=== PATIENT | male | born 1940 | race Caucasian/White ===

== ENCOUNTER 2016-11-18 09:38 | Outpatient (CLI) | payer MEDICARE, OTHER ==
[2016-11-18] MEDS ORDERED: IOPAMIDOL-300 100 ML VIAL ONE (09:45)
[2016-11-18] MEDS ORDERED: IOPAMIDOL-300 50 ML VIAL ONE (09:45)
--- NOTE | 2016-11-18 12:42 | CT Report ---
CT ABDOMEN AND PELVIS WITH AND WITHOUT CONTRAST: 11/18/2016 CLINICAL INDICATION: Change in bowel habits, bloating, nausea. TECHNIQUE: Axial CT images of the abdomen and pelvis were obtained prior to and following 100 mL Iso debora-300 intravenously. Oral contrast was administered. No previous CT is available for comparison. In accordance with CT protocol optimization, one or more of the following dose reduction techniques w ere utilized for this exam: automated exposure control, adjustment of mA and/or KV based on patient size, or use of iterative reconstructive technique. FINDINGS: Limited evaluation of the lung bases is unremarkable. Abdomen: On the unenhanced images, there is a 5-mm calculus in the lower pole of the left kidney, wi thout evidence of hydronephrosis. A small left extrarenal pelvis is present. The liver, spleen, ervin creas, and adrenal glands are unremarkable. The right kidney demonstrates an extrarenal pelvis, and a small cortical cyst. A splenule is noted in the splenic hilum. The gallbladder is not dilated. N o bowel dilatation, free gas, or free fluid is present. No abdominal adenopathy is seen. Pelvis: A small amount of stool is present in the sigmoid colon. A few scattered diverticula are se en, without CT evidence of diverticulitis. No pelvic adenopathy or free fluid is present. Osseous structures demonstrate degenerative changes. IMPRESSION: 1. NO DEFINITE COLONIC MASS. SMALL AMOUNT OF STOOL IN THE SIGMOID COLON. 2. LEFT NEPHROLITHIASIS, WITHOUT HYDRONEPHROSIS. JOB #: [id number] EXT JOB #:[id number]
== END 2016-11-18 09:39 | disposition home or self-care (01) ==
LOC: DI 09:38
PROVIDERS: ATTEND Nurse Practitioner Family
DX: N20.0 Calculus of kidney (principal)
CPT/HCPCS: 74178; Q9967

== ENCOUNTER 2017-11-14 22:10 | Emergency (ER) | payer MEDICARE, OTHER ==
[2017-11-14 22:23] VITALS: BP 158/67
[2017-11-14] MEDS ORDERED: MUPIROCIN 2% OINT 1 GM TOP STA (23:29)
[2017-11-14] MEDS ORDERED: DOXYCYCLINE 100 MG TABLET PO STA (23:29)
--- NOTE | 2017-11-14 23:45 | ED Physician Documentation ---
PD HPI LOWER EXT INJURY - Stated complaint Stated Complaint: LEG PX - Chief complaint Chief Complaint: Ext Problem - History obtained from History obtained from: Patient - History of Present Illness PD HPI LOW EXT INJURY LOCATION: Left, Lower leg Type of injury: Blunt / blow (struck lim on tow hitch of car in parking lot couple weeks ago, and had slowly healing scabbed wound. It has swelling and some redness now the past couple of days.) Where injury occurred: Other (parking lot) Timing - onset: How many weeks ago (2) Timing - details: Gradual onset (of the redness and swelling just past couple days) Worsened by: Palpating Associated symptoms: Swelling, Discolored (red). No: Weakness, Numbness Contributing factors: No: Anticoagulated Similar symptoms before: Has not had sx before Recently seen: Not recently seen Review of Systems Constitutional: denies: Fever, Chills Neurologic: denies: Focal weakness, Numbness PD PAST MEDICAL HISTORY - Past Medical History Past Medical History: No Cardiovascular: Hypertension Respiratory: None Neuro: None Endocrine/Autoimmune: Type 2 diabetes GI: None : Benign prostate hypertrophy HEENT: None Psych: Depression, Anxiety Musculoskeletal: None Derm: None - Past Surgical History Past Surgical History: Yes Ortho: Arthroscopic surgery - Present Medications Home Medications: Ambulatory Orders Medication Instructions Recorded Confirmed Doxycycline Monohydrate 100 mg PO BID #14 tablet 11/14/17 Mupirocin 1 applic TP TID #15 oint...g. 11/14/17 - Allergies Allergies/Adverse Reactions: Allergies Allergy/AdvReac Type Severity Reaction Status Date / Time No Known Drug Allergies Allergy Verified 11/14/17 22:23 - Social History Does the pt smoke?: No Smoking Status: Never smoker Does the pt drink ETOH?: Yes ETOH Use: Wine Does the pt have substance abuse?: No - Immunizations Immunizations are current?: Yes - POLST Patient has POLST: Yes PD ED PE NORMAL - Vitals Vital signs reviewed: Yes - General General: Alert and oriented X 3, No acute distress, Well developed/nourished - Derm Derm: Normal color, Warm and dry - Extremities Extremities: No calf tenderness / cord, Other (anterior lower leg with abrasion type injury with scab present. There is some surrounding mild redness and swelling. Tender locally. No calf tenderness. ) - Neuro Neuro: Alert and oriented X 3, No motor deficit, No sensory deficit, Normal speech Results - Vitals Vitals: Vital Signs - 24 hr 11/14/17 22:19 Temperature 36.9 C Heart Rate 70 Respiratory 17 Rate Blood Pressure 158/67 H O2 Saturation 98 Oxygen O2 Source Room air PD MEDICAL DECISION MAKING - ED course Complexity details: considered differential (abrasion slow healing with scab and now couple days of swelling and redness without drainage. ), d/w patient - Sepsis Event Vital Signs: Vital Signs - 24 hr 11/14/17 22:19 Temperature 36.9 C Heart Rate 70 Respiratory 17 Rate Blood Pressure 158/67 H O2 Saturation 98 Oxygen O2 Source Room air Departure - Departure Disposition: 01 Home, Self Care Clinical Impression: Traumatic open wound of lower leg with infection Qualifiers: Encounter type: initial encounter Laterality: left Qualified Code(s): S81.802A - Unspecified open wound, left lower leg, initial encounter; L08.9 - Local infection of the skin and subcutaneous tissue, unspecified Condition: Stable Record reviewed to determine appropriate education?: Yes Instructions: ED Infec Skin Cellulitis Follow-Up: DICK GEE MD [Primary Care Provider] - Prescriptions: Doxycycline Monohydrate 100 mg PO BID #14 tablet Mupirocin 1 applic TP TID #15 oint...g. Comments: Cleanse the wound area with soap and water 2-3 times a day and apply mupirocin topical antibiotic. Cover the wound with a dressing and apply Mj wrap to help reduce some of the swelling. Take doxycycline oral antibiotic twice daily for the next week. Recheck if the redness and swelling is not improved over the next several days. The scabbed wound itself will still likely take a couple weeks to fully heal up. Discharge Date/Time: 11/15/17 00:16
[2017-11-14] MEDS ORDERED: TETANUS/DIPHTHERIA/PERTUSSIS 0.5 ML SYRINGE IM ONE (23:48)
== END 2017-11-15 00:16 | disposition home or self-care (01) ==
LOC: ED 22:10
DX: S81.802A Unspecified open wound, left lower leg, initial encounter (principal); L08.9 Local infection of the skin and subcutaneous tissue, unspecified; W22.09XA Striking against other stationary object, initial encounter; Y92.481 Parking lot as the place of occurrence of the external cause; Z23 Encounter for immunization; I10 Essential (primary) hypertension; E11.9 Type 2 diabetes mellitus without complications
CPT/HCPCS: 90471; 90715; 99282; 99283; A9270

== ENCOUNTER 2017-11-21 10:39 | Emergency (ER) | payer MEDICARE, OTHER ==
[2017-11-21] MEDS ORDERED: cephALEXin 250 MG CAPSULE PO STA (12:21)
--- NOTE | 2017-11-21 12:23 | ED Physician Documentation ---
History of Present Illness - Stated complaint Stated Complaint: LEFT LEG PX - Chief complaint Chief Complaint: Ext Problem - Additonal information Additional information: hx from pt L lim vs trailer hithc open wound seen in ed - tdap and doxy and bactroban started to heal, then worse no fever Review of Systems Skin: reports: Other (ext wound) PD PAST MEDICAL HISTORY - Past Medical History Past Medical History: Yes Cardiovascular: Hypertension Respiratory: None Neuro: None Endocrine/Autoimmune: Type 2 diabetes GI: None : Benign prostate hypertrophy HEENT: None Psych: Depression, Anxiety Musculoskeletal: None Derm: None - Past Surgical History Past Surgical History: Yes Ortho: Arthroscopic surgery - Present Medications Home Medications: Ambulatory Orders Medication Instructions Recorded Confirmed Mupirocin 1 applic TP TID #15 oint...g. 11/14/17 Aspirin [Adult Low Dose Aspirin EC] 1 tab PO DAILY 11/21/17 11/21/17 Atorvastatin [Lipitor] 1 tab PO DAILY 11/21/17 11/21/17 Cephalexin [Keflex] 500 mg PO Q6H #28 capsule 11/21/17 Finasteride 1 tab PO DAILY 11/21/17 11/21/17 Gabapentin 1 tab PO TID 11/21/17 11/21/17 Lamotrigine [Lamotrigine ER] 1.5 tab PO DAILY 11/21/17 11/21/17 Lansoprazole 1 cap PO DAILY 11/21/17 11/21/17 Propranolol [Inderal] 2 tab PO DAILY 11/21/17 11/21/17 QUEtiapine [SEROquel] 2 tab PO DAILY 11/21/17 11/21/17 Spironolactone 0.5 tab PO DAILY 11/21/17 11/21/17 Zolpidem [Ambien] 1 tab PO DAILY 11/21/17 11/21/17 amLODIPine [Norvasc] 2 tab PO DAILY 11/21/17 11/21/17 clonazePAM [Clonazepam] 2 tab PO BID 11/21/17 11/21/17 - Allergies Allergies/Adverse Reactions: Allergies Allergy/AdvReac Type Severity Reaction Status Date / Time No Known Drug Allergies Allergy Verified 11/21/17 10:50 - Social History Does the pt smoke?: No Smoking Status: Never smoker Does the pt drink ETOH?: Yes Does the pt have substance abuse?: No - Immunizations Immunizations are current?: Yes - POLST Patient has POLST: Yes PD ED PE NORMAL - Vitals Vital signs reviewed: Yes - Cardiac Cardiac: RRR - Respiratory Respiratory: Clear bilaterally - Extremities Extremities: Other (L lim healing open wound but with small surrounding eyrthema, no abscess no streaking MSV intact) Results - Vitals Vitals: Vital Signs - 24 hr 11/21/17 10:47 Temperature 36.4 C L Heart Rate 70 Respiratory 16 Rate Blood Pressure 124/65 O2 Saturation 99 Oxygen O2 Source Room air PD MEDICAL DECISION MAKING - Sepsis Event Vital Signs: Vital Signs - 24 hr 11/21/17 10:47 Temperature 36.4 C L Heart Rate 70 Respiratory 16 Rate Blood Pressure 124/65 O2 Saturation 99 Oxygen O2 Source Room air Departure - Departure Disposition: 01 Home, Self Care Clinical Impression: Traumatic open wound of lower leg with infection Qualifiers: Encounter type: initial encounter Laterality: left Qualified Code(s): S81.802A - Unspecified open wound, left lower leg, initial encounter; L08.9 - Local infection of the skin and subcutaneous tissue, unspecified Condition: Good Instructions: ED Infec Skin Cellulitis Follow-Up: DICK GEE MD [Primary Care Provider] - Jovany Bowers MD [Provider Admit Priv/Credential] - Prescriptions: Cephalexin [Keflex] 500 mg PO Q6H #28 capsule Comments: Stop the doxycycline and try the keflex instead Continue the antibiotic ointment If not improving come back and see me tomorrow morning
[2017-11-21 12:32] VITALS: BP 116/68
== END 2017-11-21 12:40 | disposition home or self-care (01) ==
LOC: ED 10:39
DX: S81.802A Unspecified open wound, left lower leg, initial encounter (principal); L08.9 Local infection of the skin and subcutaneous tissue, unspecified; W22.09XA Striking against other stationary object, initial encounter; I10 Essential (primary) hypertension; E11.9 Type 2 diabetes mellitus without complications; Z79.82 Long term (current) use of aspirin
CPT/HCPCS: 99281; 99283; A9270

== ENCOUNTER 2017-11-22 10:54 | Emergency (ER) | payer MEDICARE, OTHER ==
[2017-11-22 11:16] VITALS: BP 128/65
--- NOTE | 2017-11-22 12:21 | ED Physician Documentation ---
History of Present Illness - Stated complaint Stated Complaint: LEG INFECTION/RECHECK - Chief complaint Chief Complaint: Wound - Additonal information Additional information: hx from pt L leg vs trailer hitch infected seen by me yesterday rx keflex back for wound check about the same Review of Systems Musculoskeletal: reports: Other (leg wound) PD PAST MEDICAL HISTORY - Past Medical History Cardiovascular: Hypertension Respiratory: None Neuro: None Endocrine/Autoimmune: Type 2 diabetes GI: None : Benign prostate hypertrophy, Kidney stones HEENT: None Psych: Depression, Anxiety Musculoskeletal: None Derm: None - Past Surgical History Past Surgical History: Yes Ortho: Arthroscopic surgery - Present Medications Home Medications: Ambulatory Orders Medication Instructions Recorded Confirmed Mupirocin 1 applic TP TID #15 oint...g. 11/14/17 Aspirin [Adult Low Dose Aspirin EC] 1 tab PO DAILY 11/21/17 11/21/17 Atorvastatin [Lipitor] 1 tab PO DAILY 11/21/17 11/21/17 Cephalexin [Keflex] 500 mg PO Q6H #28 capsule 11/21/17 Finasteride 1 tab PO DAILY 11/21/17 11/21/17 Gabapentin 1 tab PO TID 11/21/17 11/21/17 Lamotrigine [Lamotrigine ER] 1.5 tab PO DAILY 11/21/17 11/21/17 Lansoprazole 1 cap PO DAILY 11/21/17 11/21/17 Mupirocin Calcium [Bactroban] 1 applic TP BID #30 cream..g. 11/21/17 Propranolol [Inderal] 2 tab PO DAILY 11/21/17 11/21/17 QUEtiapine [SEROquel] 2 tab PO DAILY 11/21/17 11/21/17 Spironolactone 0.5 tab PO DAILY 11/21/17 11/21/17 Zolpidem [Ambien] 1 tab PO DAILY 11/21/17 11/21/17 amLODIPine [Norvasc] 2 tab PO DAILY 11/21/17 11/21/17 clonazePAM [Clonazepam] 2 tab PO BID 11/21/17 11/21/17 - Allergies Allergies/Adverse Reactions: Allergies Allergy/AdvReac Type Severity Reaction Status Date / Time No Known Drug Allergies Allergy Verified 11/22/17 11:04 - Social History Does the pt smoke?: No Smoking Status: Never smoker Does the pt drink ETOH?: Yes Does the pt have substance abuse?: No - Immunizations Immunizations are current?: Yes - POLST Patient has POLST: Yes PD ED PE NORMAL - Vitals Vital signs reviewed: Yes - Extremities Extremities: Other (open wound approx 1 X 1 cm and mall surrounding erythema no streaking or absces better than yesterday) Results - Vitals Vitals: Vital Signs - 24 hr 11/22/17 11:01 Temperature 35.6 C L Heart Rate 66 Respiratory 16 Rate Blood Pressure 128/65 O2 Saturation 97 Oxygen O2 Source Room air PD MEDICAL DECISION MAKING - Sepsis Event Vital Signs: Vital Signs - 24 hr 11/22/17 11:01 Temperature 35.6 C L Heart Rate 66 Respiratory 16 Rate Blood Pressure 128/65 O2 Saturation 97 Oxygen O2 Source Room air Departure - Departure Disposition: 01 Home, Self Care Clinical Impression: Traumatic open wound of lower leg with infection Qualifiers: Encounter type: subsequent encounter Laterality: left Qualified Code(s): S81.802D - Unspecified open wound, left lower leg, subsequent encounter; L08.9 - Local infection of the skin and subcutaneous tissue, unspecified Condition: Good Comments: Continue the keflex I will call Dr Bowers and ask he refer you to the wound clinic to aid healing
== END 2017-11-22 12:40 | disposition home or self-care (01) ==
LOC: ED 10:54
DX: S81.802D Unspecified open wound, left lower leg, subsequent encounter (principal); L08.9 Local infection of the skin and subcutaneous tissue, unspecified; W22.09XD Striking against other stationary object, subsequent encounter; I10 Essential (primary) hypertension; E11.9 Type 2 diabetes mellitus without complications; Z79.82 Long term (current) use of aspirin
CPT/HCPCS: 99282; 99283

== ENCOUNTER 2020-04-21 09:42 | Emergency (ER) | payer MEDICARE, OTHER ==
[2020-04-21] MEDS ORDERED: BUFFERED LIDOCAINE 10 ML SYRINGE IU ONE (10:11)
--- NOTE | 2020-04-21 10:17 | ED Physician Documentation ---
History of Present Illness - Stated complaint Stated Complaint: HEAD INJURY - Chief complaint Chief Complaint: Neuro - History obtained from History obtained from: Patient - Additonal information Additional information: Patient comes emergency department chief complaint of head injury after ground- level fall. He states he was in his garage and tripped over some lumbar that was laying on the floor. He fell forward and caught himself with his hands, but thinks that his head jerked toward the ground and he struck his forehead on the concrete floor of the garage. Patient denies loss of consciousness. He sustained a laceration to his central forehead. He denies any wrist pain. He has a couple of small abrasions on his hands but otherwise no other symptoms of injury. Patient states he has a little nausea and a little dizziness. No vomiting. No visual changes or other focal neurologic deficits. He takes 81 mg of aspirin daily, but no other anticoagulants. The injury happened an hour and a half ago. No other complaints at this time. Tetanus is up-to-date. Review of Systems Ten Systems: 10 systems reviewed and negative Constitutional: reports: Reviewed and negative Eyes: reports: Reviewed and negative Ears: reports: Reviewed and negative Nose: reports: Reviewed and negative Throat: reports: Reviewed and negative Cardiac: reports: Reviewed and negative Respiratory: reports: Reviewed and negative GI: reports: Nausea. denies: Abdominal Pain, Vomiting : reports: Reviewed and negative Skin: reports: Laceration (s) Musculoskeletal: reports: Reviewed and negative. denies: Neck pain, Extremity pain, Joint pain Neurologic: reports: Head injury. denies: Headache, LOC Psychiatric: reports: Reviewed and negative Endocrine: reports: Reviewed and negative Immunocompromised: reports: Reviewed and negative PD PAST MEDICAL HISTORY - Past Medical History Cardiovascular: Hypertension Respiratory: None Neuro: None Endocrine/Autoimmune: Type 2 diabetes GI: None : Benign prostate hypertrophy, Kidney stones HEENT: None Psych: Depression, Anxiety Musculoskeletal: None Derm: None - Past Surgical History Past Surgical History: Yes Ortho: Arthroscopic surgery - Present Medications Home Medications: Ambulatory Orders Medication Instructions Recorded Confirmed Aspirin [Adult Low Dose Aspirin EC] 1 tab PO DAILY 11/21/17 04/21/20 Atorvastatin [Lipitor] 1 tab PO DAILY 11/21/17 04/21/20 Finasteride 1 tab PO DAILY 11/21/17 04/21/20 Gabapentin 1 tab PO TID 11/21/17 04/21/20 Lamotrigine [Lamotrigine ER] 1 tab PO DAILY 11/21/17 04/21/20 Lansoprazole 1 cap PO DAILY 11/21/17 04/21/20 Propranolol [Inderal] 2 tab PO DAILY 11/21/17 04/21/20 QUEtiapine [SEROquel] 2 tab PO DAILY 11/21/17 04/21/20 Spironolactone 0.5 tab PO DAILY 11/21/17 04/21/20 Zolpidem [Ambien] 1 tab PO DAILY 11/21/17 04/21/20 amLODIPine [Norvasc] 2 tab PO DAILY 11/21/17 04/21/20 clonazePAM [Clonazepam] 2 tab PO BID 11/21/17 04/21/20 - Allergies Allergies/Adverse Reactions: Allergies Allergy/AdvReac Type Severity Reaction Status Date / Time No Known Drug Allergies Allergy Verified 04/21/20 09:48 - Social History Does the pt smoke?: No Smoking Status: Never smoker Does the pt drink ETOH?: Yes Does the pt have substance abuse?: No - Immunizations Immunizations are current?: Yes - POLST Patient has POLST: Yes PD ED PE NORMAL - Vitals Vital signs reviewed: Yes - General General: Alert and oriented X 3, No acute distress, Well developed/nourished - HEENT HEENT: PERRL, EOMI, Moist mucous membranes, Other (2.5 cm vertical midline laceration with slight irregularity of the patient's inferior forehead. No bony deformity underlying. Bleeding well controlled. No other facial trauma noted.No bony deformity or tenderness anywhere else on the face.) - Neck Neck: Supple, no meningeal sign, No bony TTP - Cardiac Cardiac: RRR, No murmur, Strong equal pulses - Respiratory Respiratory: No respiratory distress, Clear bilaterally - Abdomen Abdomen: Soft, Non tender, Non distended - Back Back: No spinal TTP - Derm Derm: Normal color, Warm and dry, No rash, Other (ByForehead laceration as noted above. 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, No motor deficit, No sensory deficit, Normal speech - Psych Psych: Normal mood, Normal affect Results - Vitals Vitals: Vital Signs - 24 hr 04/21/20 04/21/20 09:46 11:09 Temperature 36.5 C Heart Rate 70 67 Respiratory 18 19 Rate Blood Pressure 138/74 H 148/62 H O2 Saturation 100 98 Oxygen O2 Source Room air - Labs Labs: Laboratory Tests 04/21/20 10:32 POC Whole Bld Glucose 214 H - Rads (name of study) CT head Radiology: Final report received, EMP read indepedently, See rad report (neg) Procedures - Laceration (location) forehead Length in cm: 2.5 Wound type: Linear Neurovascular status: Sensory intact, Motor intact, Vascular intact Tendon involvement: No: Tendon Injury Anesthesia: Lidocaine 1% Wound preparation: Hibiclens, Irrigated copiously NS, Wound explored, To the base. No: FB identified Skin layer closure: Nylon, Size #-0 - enter number (5.0), Sutures - enter # (5) Other: Patient tolerated well, No complications, Dressing applied, Tetanus UTD PD MEDICAL DECISION MAKING - ED course Complexity details: reviewed old records, reviewed results, re-evaluated patient, considered differential, d/w patient ED course: The patient was very well-appearing, but I felt that he should have a head CT, given his use of aspirin, presence of some symptoms after head injury, and also, his age. Patient was agreeable to this. I also felt his wound should be sutured. CT scan was negative. Wound was repaired as above with sutures. We have discussed wound care at home, as well as the timeline for suture removal. We have discussed the usual indications for return. Departure - Departure Disposition: 01 Home, Self Care Clinical Impression: Fall from ground level Closed head injury Qualifiers: Encounter type: initial encounter Qualified Code(s): S09.90XA - Unspecified injury of head, initial encounter Forehead laceration Qualifiers: Encounter type: initial encounter Qualified Code(s): S01.81XA - Laceration without foreign body of other part of head, initial encounter Condition: Stable Instructions: ED Head Injury Closed, ED Laceration Facial Sutr Tape Comments: The CT scan of your head shows no bleeding in the brain or other evidence of injury. Your laceration has been cleaned and repaired with 5 synthetic sutures. You will need to have these removed by medical professional in 5 to 7 days. You may let water and soap run over the wound, but should avoid rubbing, scrubbing, or immersing the wound until sutures are removed. This is to prevent infection. If you begin to notice redness or swelling spreading progressively away from the wound, please have the wound rechecked immediately. You may use Tylenol as needed for any headache that may develop. Discharge Date/Time: 04/21/20 11:14
--- NOTE | 2020-04-21 10:47 | CT Report ---
PROCEDURE: HEAD WO INDICATIONS: head injury TECHNIQUE: Noncontrast 4.5 mm thick angled axial sections acquired from the foramen magnum to the vertex. For r adiation dose reduction, the following was used: automated exposure control, adjustment of mA and/or kV according to patient size. COMPARISON: None. FINDINGS: Image quality: Excellent. CSF spaces: Basal cisterns are patent. No extra-axial fluid collections. Ventricles are normal in size and shape. Brain: No midline shift. No intracranial masses or hemorrhage. Moon-white matter interface is norm al. Skull and face: Calvarium and visualized facial bones are intact, without suspicious lesions. Front al scalp laceration. Sinuses: Visualized sinuses and mastoids are clear. IMPRESSION: Frontal scalp laceration. No acute intracranial process. Reviewed by: Burton Lin MD on 04/21/2020 10:46 AM [facility] Approved by: Burton Lin MD on 04/21/2020 10:46 AM [facility] Station ID: [id number]
[2020-04-21 11:09] VITALS: BP 148/62
== END 2020-04-21 11:14 | disposition home or self-care (01) ==
LOC: ED 09:42
DX: S01.81XA Laceration without foreign body of other part of head, initial encounter (principal); S09.90XA Unspecified injury of head, initial encounter; S60.519A Abrasion of unspecified hand, initial encounter; W01.0XXA Fall on same level from slipping, tripping and stumbling without subsequent striking against object, initial encounter; Y92.008 Other place in unspecified non-institutional (private) residence as the place of occurrence of the external cause; Z79.82 Long term (current) use of aspirin; I10 Essential (primary) hypertension; E11.9 Type 2 diabetes mellitus without complications
CPT/HCPCS: 12011; 99282; 99284

== ENCOUNTER 2020-04-26 09:01 | Emergency (ER) | payer MEDICARE, OTHER ==
--- NOTE | 2020-04-26 09:06 | ED Physician Documentation ---
PD HPI WOUND RECHECK - Stated complaint Stated Complaint: STICH REMOVAL/DIZZY - Histroy obtained from History obtained from: Patient - History of Present Illness Location: Face (forehead) Timing - onset: How many days ago (5) Associated symptoms: Other (He states he is having some intermittent frontal headaches particularly with leaning over. He feels slightly slow in concentration and mildly fumble he with activity. No visual changes. No focal weakness. Symptoms have stayed the same with just slight improvement since injury. No worsening.). No: Fever, Redness, Swelling Similar symptoms before: Has not had sx before Recently seen: Emergency Dept (5 days ago with forehead injury without LOC, but was dazed and with forehead lac. Had normal head CT. Not on anticoagulants.) Review of Systems Eyes: denies: Loss of vision, Decreased vision Neurologic: reports: Altered mental status (feels sluggish thinking and slightly forgetful since injury.), Headache (frontal intermittent). denies: Focal weakness, Numbness PD PAST MEDICAL HISTORY - Past Medical History Cardiovascular: Hypertension Respiratory: None Neuro: None Endocrine/Autoimmune: Type 2 diabetes GI: None : Benign prostate hypertrophy, Kidney stones HEENT: None Psych: Depression, Anxiety Musculoskeletal: None Derm: None - Past Surgical History Past Surgical History: Yes Ortho: Arthroscopic surgery - Present Medications Home Medications: Ambulatory Orders Medication Instructions Recorded Confirmed Aspirin [Adult Low Dose Aspirin EC] 1 tab PO DAILY 11/21/17 04/21/20 Atorvastatin [Lipitor] 1 tab PO DAILY 11/21/17 04/21/20 Finasteride 1 tab PO DAILY 11/21/17 04/21/20 Gabapentin 1 tab PO TID 11/21/17 04/21/20 Lamotrigine [Lamotrigine ER] 1 tab PO DAILY 11/21/17 04/21/20 Lansoprazole 1 cap PO DAILY 11/21/17 04/21/20 Propranolol [Inderal] 2 tab PO DAILY 11/21/17 04/21/20 QUEtiapine [SEROquel] 2 tab PO DAILY 11/21/17 04/21/20 Spironolactone 0.5 tab PO DAILY 11/21/17 04/21/20 Zolpidem [Ambien] 1 tab PO DAILY 11/21/17 04/21/20 amLODIPine [Norvasc] 2 tab PO DAILY 11/21/17 04/21/20 clonazePAM [Clonazepam] 2 tab PO BID 11/21/17 04/21/20 - Allergies Allergies/Adverse Reactions: Allergies Allergy/AdvReac Type Severity Reaction Status Date / Time No Known Drug Allergies Allergy Verified 04/26/20 09:05 - Social History Does the pt smoke?: No Smoking Status: Never smoker Does the pt drink ETOH?: Yes Does the pt have substance abuse?: No - Immunizations Immunizations are current?: Yes - POLST Patient has POLST: Yes PD ED PE NORMAL - Vitals Vital signs reviewed: Yes - General General: Alert and oriented X 3, No acute distress, Well developed/nourished - HEENT HEENT: PERRL, EOMI, Pharynx benign, Other (forehead laceration healing well without signs of infection. 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 This was done by nursing. His symptoms otherwise sound mild concussive. They have been persistent and slowly improving since the injury. No abrupt worsening. Normal head CT at the time of injury and he is not on anticoagulants.), d/w patient Departure - Departure Disposition: 01 Home, Self Care Clinical Impression: Visit for suture removal Mild concussion Qualifiers: Encounter type: subsequent encounter Loss of consciousness presence/duration: without LOC Qualified Code(s): S06.0X0D - Concussion without loss of consciousness, subsequent encounter Condition: Stable Record reviewed to determine appropriate education?: Yes Instructions: ED Concussion Follow-Up: Jovany Bowers MD [Primary Care Provider] - Comments: Continue with the wound care of cleaning gently and applying ointment once or twice daily until fully healed. It does sound like you have some mild concussive symptoms. Typically these last just a few days but can also be a couple of weeks at times. Scale back your activity to the level that does not seem to bother you. Use some Tylenol 4 times a day if needed for headaches. Add in some ibuprofen or naproxen if needed. Recheck if still not fully improved over the next week or so. Discharge Date/Time: 04/26/20 09:33
[2020-04-26 09:09] VITALS: BP 145/64
== END 2020-04-26 09:33 | disposition home or self-care (01) ==
LOC: ED 09:01
DX: S06.0X0A Concussion without loss of consciousness, initial encounter (principal); W18.30XA Fall on same level, unspecified, initial encounter; S01.81XD Laceration without foreign body of other part of head, subsequent encounter; W18.30XD Fall on same level, unspecified, subsequent encounter; I10 Essential (primary) hypertension; E11.9 Type 2 diabetes mellitus without complications; Z79.82 Long term (current) use of aspirin
CPT/HCPCS: 99281; 99282